=== PATIENT | male | born 1930 | race Caucasian/White ===

== ENCOUNTER → 2016-11-01 | Outpatient (CLI) | payer MEDICARE, OTHER ==
--- NOTE | 2016-11-01 13:48 | CT ---
EXAMINATION TYPE: CT chest wo con DATE OF EXAM: 11/01/2016 COMPARISON: 10/07/2015 HISTORY: Ascending aortic aneurysm CT DLP: 738.[address] of the chest was performed with lung and mediastinal window settings submitted. The la ck of contrast limits evaluation of the vascular, mediastinal and parenchymal structures including th e upper abdomen. LUNGS: The lungs are hyperinflated. Scattered subpleural fibrosis greatest within the upper lobes and left lower lobe. No evidence for focal consolidation. No nodule or mass. No visible pleural effusion . MEDIASTINUM/YOLANDA: Ascending thoracic aortic aneurysm measuring 5.1 cm AP dimension versus 5.2 cm prev iously. There is cardiomegaly with coronary artery calcifications. The graft No evidence for mediasti nal mass. No lymph nodes greater than 1cm. UPPER ABDOMEN: Renal cysts are noted. OTHER: No significant other abnormality. IMPRESSION: 1. Stable ascending thoracic aortic aneurysm. 2. COPD with subpleural fibrosis.
== END | disposition home or self-care (01) ==
LOC: RADCTMAIN 13:14
PROVIDERS: ATTEND Internal Medicine Interventional Cardiology
DX: I71.2 Thoracic aortic aneurysm, without rupture (principal); J44.9 Chronic obstructive pulmonary disease, unspecified; J84.10 Pulmonary fibrosis, unspecified
CPT/HCPCS: 71250